=== PATIENT | male | born 1950 | race Caucasian/White ===

== ENCOUNTER 2018-11-22 22:04 | Emergency (ER) | payer MEDICARE, BC ==
[~2018-11-22] VITALS: Ht 177.8 cm; Wt 68.0 kg
[2018-11-22] MEDS ORDERED: LIPITOR20 MG ORAL (22:13)
[2018-11-22] MEDS ORDERED: SERTRALINE HCL50 MG ORAL (22:13)
--- NOTE | 2018-11-22 22:22 | Emergency Room Report ---
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 He presents with chief complaint of dark urine. He had a prostate procedure done 7 weeks ago. Since then has intermittent hematuria. Today he did cross fit training, swam and then walked about 10 miles. He said he was drinking and was staying hydrated. Tonight he had very dark urine. He denies any pain or trauma. No fever chills but no nausea no vomiting. He was concerned about hematuria versus rhabdomyolysis. He presents for blood testing. Denies any other complaint. Allergies: Coded Allergies: No Known Allergies (Unverified , 11/22/18) Patient History Past Medical History: see triage record, old chart reviewed Past Surgical History: other Pertinent Family History: none Social History: Denies: smoking Immunizations: other Reviewed Nursing Documentation: PMH: Agreed; PSxH: Agreed Nursing Documentation-PMH Past Medical History: No History, Except For Hx Gastrointestinal Problems: No - prostate surgery 10/02/2018 Review of Systems Eye: Denies: eye pain, blurred vision ENT: Denies: ear pain, nose congestion, throat swelling Respiratory: Denies: cough, shortness of breath Cardiovascular: Denies: chest pain, palpitations Gastrointestinal: Denies: abdominal pain, diarrhea, nausea, vomiting Musculoskeletal: Denies: back pain, joint pain Skin: Denies: rash Neurological: Denies: headache, numbness Endocrine: Denies: increased thirst, increased urine Hematologic/Lymphatic: Denies: easy bruising All Other Systems: negative except mentioned in HPI Physical Exam Vital Signs Date Time Temp Pulse Resp B/P (MAP) Pulse Ox O2 Delivery O2 Flow Rate FiO2 11/22/18 22:10 70 16 150/84 97 Room Air vitals with high blood pressure Sp02 EP Interpretation: reviewed, normal General Appearance: well appearing, no apparent distress, alert Head: normocephalic, atraumatic Eyes: bilateral eye PERRL, bilateral eye EOMI ENT: hearing grossly normal, normal pharynx Neck: full range of motion, supple, no meningismus Respiratory: chest non-tender, lungs clear, normal breath sounds Cardiovascular #1: regular rate, rhythm, no murmur Gastrointestinal: normal bowel sounds, non tender, no mass, no organomegaly, no bruit, non-distended Musculoskeletal: back normal, gait/station normal, normal range of motion Psychiatric: mood/affect normal Skin: warm/dry Medical Decision Making Diagnostic Impression: Primary Impression: Hematuria Qualified Codes: R31.9 - Hematuria, unspecified ER Course Patient presents with microscopic hematuria. This is an ongoing issue for him. No evidence of rhabdomyolysis. We'll discharge home. Last Vital Signs Date Time Temp Pulse Resp B/P (MAP) Pulse Ox O2 Delivery O2 Flow Rate FiO2 11/22/18 22:10 70 16 150/84 97 Room Air Status: improved Disposition: HOME, SELF-CARE Condition: Stable Additional Instructions: Follow-up with your doctor in 7 days. Return if symptom worsen. Jose Lopez MD Nov 22, 2018 22:22
[2018-11-22 22:40] LABS: BASOPHILS % (AUTO) 1.1 % (0.0-2.0); EOSINOPHILS % (AUTO) 2.9 % (0.0-3.0); HEMATOCRIT 39.3 % (42.0-52.0); LYMPHOCYTES % (AUTO) 30.2 % (20.0-45.0); MEAN CORPUSCULAR VOLUME 87 FL (80-99); MONOCYTES % (AUTO) 8.3 % (1.0-10.0); NEUTROPHILS % (AUTO) 57.6 % (45.0-75.0); PLATELET COUNT 260 K/UL (150-450); RED BLOOD COUNT 4.54 M/UL (4.70-6.10); RED CELL DISTRIBUTION WIDTH 11.1 % (11.6-14.8); WHITE BLOOD COUNT 6.6 K/UL (4.8-10.8)
[2018-11-22 22:47] LABS: APPEARANCE,URINE CLOUDY; BILIRUBIN, URINE NEGATIVE (NEGATIVE); GLUCOSE, URINE (UA) NEGATIVE (NEGATIVE); KETONES,URINE NEGATIVE (NEGATIVE); LEUKOCYTE ESTERASE ,URINE 2+ (NEGATIVE); NITRITE,URINE NEGATIVE (NEGATIVE); PH,URINE 6 (4.5-8.0); PROTEIN,URINE 2+ (NEGATIVE); UROBILINOGEN,URINE NORMAL MG/DL (0.0-1.0)
[2018-11-22 22:48] LABS: COLOR,URINE ORANGE
[2018-11-22 22:49] LABS: ANION GAP 8 mmol/L (5-15); BLOOD UREA NITROGEN 25 mg/dL (7-18); CALCIUM 8.7 MG/DL (8.5-10.1); CARBON DIOXIDE 29 MMOL/L (21-32); CHLORIDE 101 MMOL/L (98-107); CREATININE 1.3 MG/DL (0.55-1.30); POTASSIUM 3.8 MMOL/L (3.5-5.1); SODIUM 138 MMOL/L (136-145)
[2018-11-22 23:04] LABS: CKMB 1.7 NG/ML (0.0-3.6); CREATINE KINASE 139 U/L (26-308)
[2018-11-22 23:15] VITALS: BP 141/77
== END 2018-11-22 23:30 | disposition home or self-care (01) ==
LOC: EMR 22:30
DX: R31.29 Other microscopic hematuria (principal)
CPT/HCPCS: 36415; 80048; 81001; 82550; 82553; 85025; 87086; 96360; 99284